=== PATIENT | female | born 1960 | race Caucasian/White ===

== ENCOUNTER → 2016-10-14 | Outpatient (CLI) | payer BC ==
[~2016-10-14] MED LIST: ALLEGRA ALLERG180 MG PO; ALORA0.025 MG/2; CYMBALTA 60MG60 MG PO; FLEXERIL 1010 MG/TAB PO; HYZAAR 12.5 MG-1 TAB PO; LINZESS145CAP PO; MOBIC 7.5MG7.5 MG PO; NORCO 325 MG-51 TAB PO; OMNICEF 300MG300 MG PO; PRILOSEC 20MG20 MG PO; PROBIOTIC-MAJOR PO; SYNTHROID0.075 MG/T PO; ULTRAM 50MG TAB50 MG PO; VALTREX 50500 MG/TAB PO; ZANTAC 7575 MG; thyroxine PO
== END ==
LOC: COL.RAD 12:22
DX: R22.2 Localized swelling, mass and lump, trunk (principal)

== ENCOUNTER → 2016-12-03 | Outpatient (CLI) | payer BC | LOC: MC.RAD 08:56 | DX: Z12.31 Encounter for screening mammogram for malignant neoplasm of breast (principal) ==

== ENCOUNTER → 2017-07-22 | Outpatient (CLI) | payer BC | LOC: COL.RAD 13:05 | DX: R91.8 Other nonspecific abnormal finding of lung field (principal) ==

== ENCOUNTER → 2017-10-14 | Outpatient (CLI) | payer BC | LOC: COL.RAD 07:50 | DX: K21.9 Gastro-esophageal reflux disease without esophagitis (principal); K44.9 Diaphragmatic hernia without obstruction or gangrene; K22.4 Dyskinesia of esophagus ==

== ENCOUNTER → 2018-01-28 | Outpatient (CLI) | payer BC | LOC: MC.RAD 08:56 | DX: Z12.31 Encounter for screening mammogram for malignant neoplasm of breast (principal) ==